=== PATIENT | female | born 1990 | race Caucasian/White ===

== ENCOUNTER 2016-07-28 12:25 | Inpatient (IN) | payer MEDICAID ==
[2016-07-28] MEDS: Lactated Ringers 1,000 ML IV SCH ×3 (12:54→22:13)
[2016-07-28] MEDS ORDERED: Lidocaine 1% 30 ML SDV INJECT PRN (13:20)
[2016-07-28] MEDS ORDERED: Sodium Chloride 0.9% 10 ML Syringe FLUSH PRN (13:20)
[2016-07-28] MEDS ORDERED: Ondansetron 4 MG/2 ML SDV IV PRN (13:20)
[2016-07-28] MEDS ORDERED: Acetaminophen 325 MG Tab PO PRN (13:20)
[2016-07-28] MEDS ORDERED: Methylergonovine 0.2 MG/1 ML Amp IM PRN (13:20)
[2016-07-28] MEDS ORDERED: Carboprost Tromethamine 250 MCG/1 ML Amp IM PRN (13:20)
[2016-07-28] MEDS ORDERED: Lactated Ringers 500 ML IV ONE (13:20)
[2016-07-28] MEDS ORDERED: Misoprostol 400 MCG (4 X 100 MCG TAB) RECTAL PRN (13:20)
[2016-07-28] MEDS ORDERED: fentaNYL 100 MCG/2 ML SDV IVPUSH PRN (13:20)
[2016-07-28] MEDS ORDERED: Oxytocin/Normal Saline 30 UNIT/500 ML BAG IV SCH (13:30)
[2016-07-28] MEDS ORDERED: Penicillin G Potassium 5 MILLUNITS in Sodium Chloride 0.9% 100 ML IV ONE (13:30)
--- NOTE | 2016-07-28 13:31 | PCM.LDHP ---
L&D History of Present Illness - General Date of Service: 07/28/16 Admit Problem/Dx: Patient Status Order with Admit Dx/Problem 07/28/16 13:20 Patient Status [ADT] Routine Patient Status: Admit to Inpatient Admission Diagnosis/Problem: care Reason for Admit: Spontaneous rupture of membranes Nurse Unit Type: Labor and Delivery Admitting Physician: Chantal Davis Attending Physician: Chantal Davis Admission Diagnosis/Problem Admission Diagnosis/Problem care - History of Present Illness Introduction:: 26-year-old at 37w6d presents with ruptured membranes around 0730 this morning. She states she had a small leak that has continued to increase as the day has progressed. She presented to the OB floor with obvious leaking of fluid. NO vaginal bleeding or leaking of fluid. Baby has been active. She is not feeling any contractions. 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: Musculoskeletal History: Reports: None Neurological History: Reports: None Psychiatric History: Reports: None Endocrine/Metabolic History: Reports: Diabetes, gestational Hematologic History: Reports: Other (see below) Other Hematologic History: hx anemia prior Immunologic History: Reports: None Oncologic (Cancer) History: Reports: None Dermatologic History: Reports: None - Infectious Disease History Infectious Disease History: Reports: None - Past Surgical History Head Surgeries/Procedures: Reports: None Social & Family History - Family History Family Medical History: Noncontributory H&P Review of Systems - Review of Systems: Review Of Systems: See Below General: Reports: no symptoms HEENT: Reports: no symptoms Pulmonary: Reports: no symptoms Cardiovascular: Reports: no symptoms Gastrointestinal: Reports: No symptoms Genitourinary: Reports: no symptoms Musculoskeletal: Reports: no symptoms Skin: Reports: no symptoms L&D Exam - Exam Exam: See Below - Vital Signs Vital Signs: Last Vital Signs Temp 37.6 C 07/28/16 12:43 Pulse 101 H 07/28/16 12:54 Resp 16 07/28/16 12:54 BP 135/85 07/28/16 12:54 Pulse Ox 98 07/28/16 12:43 - OB Specific Contraction Duration (sec): 45 Contraction Frequency (min): 1.5 Contraction Intensity: Mild movement: active heart tones: present heart tones per min: 145 Heart Rate (FHR) Variability: Moderate (6-25 bmp) Presentation: Vertex - Taylor Score Taylor Score Cervix Position: Posterior Taylor Score Consistency: Soft Taylor Score Effacement: 31-50% Taylor Score Dilation: 1-2 cm Taylor Score 's Station: -3 Taylor Score Total: 4 - Exam General: alert, oriented HEENT: Mucosa moist & pink, Posterior pharynx clear Lungs: Clear to auscultation, Normal respiratory effort Cardiovascular: regular rate, regular rhythm. No: systolic murmur, diastolic murmur Genitourinary: Normal external exam Skin: warm, dry, intact - Problem List (1) care in third trimester SNOMED Code(s): 176585109, 38753213, 01800013, 552991341, 113575043 ICD Code: Z34.93 - ENCNTR FOR SUPRVSN OF NORMAL PREG, UNSP, THIRD TRIMESTER Status: Acute Current Visit: Yes (2) PROM (premature rupture of membranes) SNOMED Code(s): 29626201 ICD Code: O42.90 - DAVEY ROM, 7TH0 BETW RUPT & ONST LABR, UNSP WEEKS OF GEST Status: Acute Current Visit: Yes (3) GBS (group B Streptococcus carrier), +RV culture, currently SNOMED Code(s): 90779563, 592349284 ICD Code: O99.820 - STREPTOCOCCUS B CARRIER STATE COMPLICATING Status: Acute Current Visit: Yes (4) Rubella non-immune status, antepartum SNOMED Code(s): 848268985 ICD Code: O99.89 - OTH DISEASES AND CONDITIONS COMPL PREG/CHLDBRTH; Z28.3 - UNDERIMMUNIZATION STATUS Status: Acute Current Visit: Yes (5) Gestational diabetes mellitus SNOMED Code(s): 10507348 ICD Code: O24.419 - GESTATIONAL DIABETES MELLITUS IN , UNSP CONTROL Status: Acute Current Visit: Yes (6) In utero drug exposure SNOMED Code(s): 570325935 ICD Code: P04.9 - AFFECTED BY MATERNAL NOXIOUS SUBSTANCE, UNSPECIFIED Status: Acute Current Visit: Yes Problem List Initiated/Reviewed/Updated: Yes Orders Last 24hrs: Active Orders 24 hr Category Date Time Status Patient Status [ADT] Routine ADT 07/28/16 13:20 Ordered Communication Order [RC] ASDIRECTED Care 07/28/16 13:20 Ordered Notify Provider Vital Signs OB [RC] ASDIRECTED Care 07/28/16 13:20 Ordered Notify Provider [RC] PRN Care 07/28/16 13:20 Ordered Pump Management, Intrathecal [RC] ASDIRECTED Care 07/28/16 13:20 Ordered Up ad Richa [RC] ASDIRECTED Care 07/28/16 13:20 Ordered Vital Signs [RC] PER UNIT ROUTINE Care 07/28/16 13:20 Ordered Clear Liquid Diet [DIET] Diet 07/28/16 Lunch Ordered CBC W/O DIFF,HEMOGRAM [HEME] Routine Lab 07/28/16 13:20 Ordered DRUG SCREEN,SERUM [CHEM] Routine Lab 07/28/16 13:20 Ordered Acetaminophen [Tylenol] Med 07/28/16 13:20 Ordered 650 mg PO Q4H PRN Carboprost Tromethamine [Hemabate DS] Med 07/28/16 13:20 Ordered 250 mcg IM ASDIRECTED PRN Lactated Ringers @ 125 MLS/HR(1000ml) Med 07/28/16 13:30 Ordered Lactated Ringers [Ringers, Lactated] 1,000 ml IV ASDIRECTED Lactated Ringers [Ringers, Lactated] 500 ml Med 07/28/16 13:20 Ordered IV .BOLUS Lidocaine 1% [Xylocaine-MPF 1%] Med 07/28/16 13:20 Ordered 10 ml INJECT ASDIRECTED PRN Methylergonovine [Methergine] Med 07/28/16 13:20 Ordered 0.2 mg IM ASDIRECTED PRN Misoprostol [Cytotec] Med 07/28/16 13:20 Ordered 800 mcg RECTAL ASDIRECTED PRN Ondansetron [Zofran] Med 07/28/16 13:20 Ordered 4 mg IV Q4H PRN Oxytocin 30 Units in NS @ 2 MUNITS/MIN(500ml) Med 07/28/16 13:30 Ordered Oxytocin/Normal Saline [Pitocin in NS 30 UNIT/500 ML] 30 unit in 500 ml IV TITRATE Penicillin G Potassium [Pfizerpen] 3 millunits Med 07/28/16 14:00 Ordered Sodium Chloride 0.9% [Normal Saline] 100 ml IV Q4HR Penicillin G Potassium [Pfizerpen] 5 millunits Med 07/28/16 13:20 Ordered Sodium Chloride 0.9% [Normal Saline] 100 ml IV ONETIME Sodium Chloride 0.9% [Saline Flush] Med 07/28/16 13:20 Ordered 10 ml FLUSH ASDIRECTED PRN fentaNYL [Sublimaze] Med 07/28/16 13:20 Ordered 100 mcg IVPUSH Q1H PRN Saline Lock Insert [OM.PC] Routine Oth 07/28/16 13:20 Ordered Resuscitation Status Routine Resus Stat 07/28/16 13:20 Ordered Medication Orders Acetaminophen (Tylenol) 650 mg PO Q4H PRN PRN Reason: Pain (Mild 1-3) and fever Carboprost Tromethamine (Hemabate Ds) 250 mcg IM ASDIRECTED PRN PRN Reason: HEMORRHAGE Fentanyl (Sublimaze) 100 mcg IVPUSH Q1H PRN PRN Reason: Pain (moderate 4-6) Lactated Ringer's (Ringers, Lactated) 500 mls @ 999 mls/hr IV .BOLUS ONE Stop: 07/28/16 13:50 Lactated Ringer's (Ringers, Lactated) 1,000 mls @ 125 mls/hr IV ASDIRECTED JOSEF Penicillin G Potassium 5 (millunits/ Sodium Chloride) 100 mls @ 200 mls/hr IV ONETIME ONE Stop: 07/28/16 13:49 Penicillin G Potassium 3 (millunits/ Sodium Chloride) 100 mls @ 200 mls/hr IV Q4HR JOSEF Oxytocin/Sodium Chloride (Pitocin In Ns 30 Unit/500 Ml) 30 unit in 500 mls @ 2 mls/hr IV TITRATE JOSEF; 2 MUNITS/MIN PRN Reason: Protocol Lidocaine HCl (Xylocaine-Mpf 1%) 10 ml INJECT ASDIRECTED PRN PRN Reason: Perineal Repair Methylergonovine Maleate (Methergine) 0.2 mg IM ASDIRECTED PRN PRN Reason: Hemorrhage Misoprostol (Cytotec) 800 mcg RECTAL ASDIRECTED PRN PRN Reason: Hemorrhage Ondansetron HCl (Zofran) 4 mg IV Q4H PRN PRN Reason: Nausea/Vomiting Sodium Chloride (Saline Flush) 10 ml FLUSH ASDIRECTED PRN PRN Reason: Keep Vein Open Assessment/Plan Comment:: 1. Admit to Labor and Delivery 2. Initiate routine intrapartum orders 3. Penicillin for GBS positive status 4. As she has been ruptured for 6 hours, will initiate pitocin for induction of labor 5. Expectant management. Anticipate Chantal Davis MD
[2016-07-28] MEDS: Penicillin G Potassium 3 MILLUNITS in Sodium Chloride 0.9% 100 ML IV SCH ×2 (17:49→21:54)
[2016-07-29] MEDS: Penicillin G Potassium 3 MILLUNITS in Sodium Chloride 0.9% 100 ML IV SCH (01:34)
[2016-07-29] MEDS: Lactated Ringers 1,000 ML IV SCH (01:42)
--- NOTE | 2016-07-29 02:26 | PCM.SN ---
- Free Text/Narrative Note: Intrathecal. Sitting position, sterile prep and drape. 1 % lidocaine w bicarb for skinwheal to L3 L4 interspace, introducer, 24 ga pencan x 1. Pos CSF, neg heme, neg parasthesia. 15 mcg pf sufenta, 30 mcg pf fentanyl, 0.4 ml pf ns and 6 mg of 0.75 % pf bupivacaine injected after CSF aspiration. Pt to L lateral position. Procedure time 0205 to 0230
[2016-07-29] MEDS ORDERED: Simethicone 80 MG Tab.Chew PO PRN (04:38)
[2016-07-29] MEDS ORDERED: Sodium Chloride 0.9% 10 ML Syringe FLUSH PRN (04:38)
[2016-07-29] MEDS ORDERED: Benzocaine/Menthol 20%-0.5% Spray 56 GM Canister TOP PRN (04:38)
[2016-07-29] MEDS ORDERED: Oxytocin 10 Units/1 ML SDV IM PRN (04:38)
[2016-07-29] MEDS ORDERED: Ibuprofen 800 MG Tab PO PRN (04:38)
--- NOTE | 2016-07-29 04:45 | PCM.DEL ---
L & D Note - General Info Date of Service: 07/29/16 Mother's Due Date: 08/12/16 - Delivery Note Labor: spontaneous, augmented by oxytocin Delivery Outcome: Livebirth Infant Delivery Method: Spontaneous Vaginal Delivery Presentation: Left Occiput Anterior (JOSE) Nuchal cord: present, reduced Anesthesia Type: None Amniotic Fluid Description: Clear Episiotomy Type: None Laceration: labial (Not repaired, hemostatic) Cord: 3 vessels Estimated blood loss: 150 Resuscitation needed: Yes [place]: suctioned, bulb syringe, stimulated, warmed, blanket used, warmer used Delivery Comments (Free Text/Narrative):: 26-year-old, now , presented to the OB floor on 07/28/2016 with spontaneous rupture of membranes 6 hours prior to arrival to the floor. Pencillin was started for GBS positive status. Pitocin was also started to Augment labor. Patient progress to 7 cm dilation without pain medication; however, over the next 2 hours, her cervix started to swell due to involuntary pushing. Patient received an intrathecal and was able to rest comfortably. She progressed to complete dilation and +2 station. Patient pushed for 10-15 minutes and delivered a viable female infant. Nuchal was noted upon delivery of the head and baby was delivered through it. Cord was clamped x2 and cut in the standard fashion. Baby was taken to the warmer. Cord blood was collected. A short time later, the placenta delivered spontaneously and appeared to be intact. Left labial laceration was noted but was hemostatic so was not repaired. Bleeding was appropriate. There were no complications. - General Info Date of Service: 07/29/16 - Patient Data Vitals - most recent: Last Vital Signs Temp 37.4 C 07/28/16 23:47 Pulse 135 H 07/29/16 04:00 Resp 16 07/29/16 04:00 BP 109/62 07/29/16 04:00 Pulse Ox 100 07/29/16 04:00 Weight - most recent: 56.699 kg I&O - last 24 hours: Intake & Output 07/28/16 07/28/16 07/29/16 14:59 22:59 06:59 Intake Total 100 2620 1100 Output Total 200 300 Balance -100 2320 1100 Lab Results last 24 hrs: Laboratory Results - last 24 hr 07/28/16 07/28/16 Range/Units 12:00 12:00 WBC 12.3 H (5.0-10.0) 10^3/uL RBC 3.59 L (4.2-5.4) 10^6/uL Hgb 12.1 (12.0-16.0) g/dL Hct 35.8 L (37.0-47.0) % MCV 99.7 (80-100) fL MCH 33.7 (27.0-34.0) pg MCHC 33.8 (33.0-35.0) g/dL Plt Count 154 (150-450) 10^3/uL Urine Opiates Screen Negative (NEGATIVE) Ur Oxycodone Screen Negative (NEGATIVE) Urine Methadone Screen Negative (NEGATIVE) Ur Barbiturates Screen Negative (NEGATIVE) U Tricyclic Antidepress Negative (NEGATIVE) Ur Phencyclidine Scrn Negative (NEGATIVE) Ur Amphetamine Screen Negative (NEGATIVE) U Methamphetamines Scrn Negative (NEGATIVE) Urine MDMA Screen Negative (NEGATIVE) U Benzodiazepines Scrn Negative (NEGATIVE) Urine Cocaine Screen Negative (NEGATIVE) U Marijuana (THC) Screen Negative (NEGATIVE) Med Orders - Current: Current Medications Acetaminophen (Tylenol) 650 mg PO Q4H PRN PRN Reason: Pain (Mild 1-3) and fever Carboprost Tromethamine (Hemabate Ds) 250 mcg IM ASDIRECTED PRN PRN Reason: HEMORRHAGE Oxytocin/Sodium Chloride (Pitocin In Ns 30 Unit/500 Ml) 30 unit in 500 mls @ 2 mls/hr IV TITRATE JOSEF; 2 MUNITS/MIN PRN Reason: Protocol Last Titration: 07/28/16 21:53 Dose: 14 munits/min, 14 mls/hr Methylergonovine Maleate (Methergine) 0.2 mg IM ASDIRECTED PRN PRN Reason: Hemorrhage Misoprostol (Cytotec) 800 mcg RECTAL ASDIRECTED PRN PRN Reason: Hemorrhage Ondansetron HCl (Zofran) 4 mg IV Q4H PRN PRN Reason: Nausea/Vomiting Last Admin: 07/29/16 01:54 Dose: 4 mg Sodium Chloride (Saline Flush) 10 ml FLUSH ASDIRECTED PRN PRN Reason: Keep Vein Open Discontinued Medications Fentanyl (Sublimaze) 100 mcg IVPUSH Q1H PRN PRN Reason: Pain (moderate 4-6) Lactated Ringer's (Ringers, Lactated) 500 mls @ 999 mls/hr IV .BOLUS ONE Stop: 07/28/16 13:50 Last Admin: 07/29/16 02:38 Dose: 999 mls/hr Lactated Ringer's (Ringers, Lactated) 1,000 mls @ 125 mls/hr IV ASDIRECTED JOSEF Last Admin: 07/29/16 01:42 Dose: 125 mls/hr Penicillin G Potassium 5 (millunits/ Sodium Chloride) 100 mls @ 200 mls/hr IV ONETIME ONE Stop: 07/28/16 13:59 Last Admin: 07/28/16 13:48 Dose: 200 mls/hr Penicillin G Potassium 3 (millunits/ Sodium Chloride) 100 mls @ 200 mls/hr IV Q4HR [facility] Last Admin: 07/29/16 01:34 Dose: 200 mls/hr Lidocaine HCl (Xylocaine-Mpf 1%) 10 ml INJECT ASDIRECTED PRN PRN Reason: Perineal Repair - Problem List & Annotations (1) care in third trimester SNOMED Code(s): 661650913, 29103964, 43124747, 329526319, 732302423 Code(s): Z34.93 - ENCNTR FOR SUPRVSN OF NORMAL PREG, UNSP, THIRD TRIMESTER Status: Acute Current Visit: Yes (2) PROM (premature rupture of membranes) SNOMED Code(s): 67235676 Code(s): O42.90 - DAVEY ROM, 7TH0 BETW RUPT & ONST LABR, UNSP WEEKS OF GEST Status: Acute Current Visit: Yes (3) GBS (group B Streptococcus carrier), +RV culture, currently SNOMED Code(s): 16856839, 740973196 Code(s): O99.820 - STREPTOCOCCUS B CARRIER STATE COMPLICATING Status: Acute Current Visit: Yes (4) Rubella non-immune status, antepartum SNOMED Code(s): 738537693 Code(s): O99.89 - OTH DISEASES AND CONDITIONS COMPL PREG/CHLDBRTH; Z28.3 - UNDERIMMUNIZATION STATUS Status: Acute Current Visit: Yes (5) Gestational diabetes mellitus SNOMED Code(s): 44289713 Code(s): O24.419 - GESTATIONAL DIABETES MELLITUS IN , UNSP CONTROL Status: Acute Current Visit: Yes (6) In utero drug exposure SNOMED Code(s): 482202518 Code(s): P04.9 - AFFECTED BY MATERNAL NOXIOUS SUBSTANCE, UNSPECIFIED Status: Acute Current Visit: Yes (7) (normal spontaneous vaginal delivery) SNOMED Code(s): 17758849 Code(s): O80 - ENCOUNTER FOR FULL-TERM UNCOMPLICATED DELIVERY Status: Acute Current Visit: Yes - Problem List Review Problem List Initiated/Reviewed/Updated: Yes - My Orders Last 24 Hours: My Active Orders 07/28/16 13:20 Patient Status [ADT] Routine Up ad Richa [RC] ASDIRECTED CBC W/O DIFF,HEMOGRAM [HEME] Routine DRUG SCREEN,SERUM [CHEM] Routine Acetaminophen [Tylenol] 650 mg PO Q4H PRN Carboprost Tromethamine [Hemabate DS] 250 mcg IM ASDIRECTED PRN Methylergonovine [Methergine] 0.2 mg IM ASDIRECTED PRN Misoprostol [Cytotec] 800 mcg RECTAL ASDIRECTED PRN Ondansetron [Zofran] 4 mg IV Q4H PRN Sodium Chloride 0.9% [Saline Flush] 10 ml FLUSH ASDIRECTED PRN Saline Lock Insert [OM.PC] Routine Resuscitation Status Routine 07/28/16 13:30 Oxytocin/Normal Saline [Pitocin in NS 30 UNIT/500 ML] 30 unit in 500 ml IV TITRATE 07/29/16 04:38 Notify Provider Vital Signs OB [RC] ASDIRECTED Up ad Richa [RC] ASDIRECTED Vital Signs [RC] PFP Consult to Arc Cutter [CONS] Routine Benzocaine/Menthol [Dermoplast Pain Relief [place]] See Dose Instructions TOP Q4H PRN Docusate Sodium [Colace] 100 mg PO BID PRN Ibuprofen [Motrin] 800 mg PO Q8H PRN Oxytocin [Pitocin] 10 unit IM ONETIME PRN Simethicone 80 mg PO Q4H PRN Sodium Chloride 0.9% [Saline Flush] 10 ml FLUSH ASDIRECTED PRN Assess Lochia [WOMSER] Per Unit Routine Assess Uterine Involution [WOMSER] Per Unit Routine Breast Pump [WOMSER] Per Unit Routine Ice Therapy [OM.PC] Per Unit Routine Perineal Care [OM.PC] Per Unit Routine Saline Lock Insert [OM.PC] Urgent Sitz Bath [OM.PC] Per Unit Routine 07/29/16 09:00 Vit with Ca/FA/Iron [ Plus Iron] 1 each PO DAILY - Assessment Assessment:: 26-year-old, now , status post normal spontaneous vaginal delivery - Plan Plan:: 1. Initiate routine orders 2. Plans to breastfeed-- consult placed 3. Anticipate discharge 07/31/16 Chantal Davis MD
[2016-07-29] MEDS: Prenatal Multivitamin with Calcium/Folic Acid/Iron Tab PO SCH (08:15)
[2016-07-29] MEDS: Docusate Sodium 100 MG Cap PO PRN (08:15)
[2016-07-29] MEDS ORDERED: fentaNYL 100 MCG/2 ML SDV IV ONE (12:39)
[2016-07-29] MEDS ORDERED: Measles, Mumps & Rubella Vaccine 0.5 ML SDV SUBCUT ONE (13:32)
[2016-07-30 08:27] VITALS: BP 126/73
[2016-07-30] MEDS: Prenatal Multivitamin with Calcium/Folic Acid/Iron Tab PO SCH (09:04)
[2016-07-30] MEDS: Docusate Sodium 100 MG Cap PO PRN (09:04)
--- NOTE | 2016-07-30 12:15 | PCM.DCSUM1 ---
Discharge Summary - Hospital Course Free Text/Narrative:: Patient presented to the OB floor with PROM on 07/28/16. Penicillin was started for GBS positive status, and pitocin was given for labor induction/ augmentation. Patient received at intrathecal for pain control. She delivered a viable female via on 07/29/16. Baby had Apgars on 5 and 9 at 1 and 5 minutes respectively. No laceration repair was needed. Placenta delivered spontaneously and intact. Bleeding was appropriate - Discharge Data Discharge Date: 07/30/16 Discharge Disposition: Home, Self-Care 01 Condition: Good - Discharge Diagnosis/Problem(s) (1) care in third trimester SNOMED Code(s): 489536258, 06638478, 11173893, 830797087, 442655281 ICD Code: Z34.93 - ENCNTR FOR SUPRVSN OF NORMAL PREG, UNSP, THIRD TRIMESTER Status: Acute (2) PROM (premature rupture of membranes) SNOMED Code(s): 15835868 ICD Code: O42.90 - DAVEY ROM, 7TH0 BETW RUPT & ONST LABR, UNSP WEEKS OF GEST Status: Acute (3) GBS (group B Streptococcus carrier), +RV culture, currently SNOMED Code(s): 32569689, 283137727 ICD Code: O99.820 - STREPTOCOCCUS B CARRIER STATE COMPLICATING Status: Acute (4) Rubella non-immune status, antepartum SNOMED Code(s): 426889146 ICD Code: O99.89 - OTH DISEASES AND CONDITIONS COMPL PREG/CHLDBRTH; Z28.3 - UNDERIMMUNIZATION STATUS Status: Acute (5) Gestational diabetes mellitus SNOMED Code(s): 37934163 ICD Code: O24.419 - GESTATIONAL DIABETES MELLITUS IN , UNSP CONTROL Status: Acute (6) In utero drug exposure SNOMED Code(s): 701530525 ICD Code: P04.9 - AFFECTED BY MATERNAL NOXIOUS SUBSTANCE, UNSPECIFIED Status: Acute (7) (normal spontaneous vaginal delivery) SNOMED Code(s): 59044474 ICD Code: O80 - ENCOUNTER FOR FULL-TERM UNCOMPLICATED DELIVERY Status: Acute - Patient Summary/Data Operative Procedure(s) Performed: None Complications: None Consults: Consultations 07/29/16 04:38 Consult to Supervisor Pumping [CONS] Routine Recommended Follow-up Testing/Procedures: None Planned Operative Procedure(s) after DC: None Hospital Course: Unremarkable course (see Subjective below) - Patient Instructions Diet: Usual Diet as Tolerated Activity: As Tolerated, No Lifting Over 20 Pounds Driving: May Drive Today Showering/Bathing: May Shower Notify Provider of: Fever, Increased Pain, Swelling and Redness, Drainage, Nausea and/or Vomiting - Discharge Plan Home Medications: Home Meds Vit with Ca/FA/Iron [ Plus Iron] 1 tab PO DAILY 07/28/16 [ History] Acetaminophen [Tylenol] 650 mg PO Q4H PRN #0 tablet 07/30/16 [Rx] Ibuprofen [IJD: Ibuprofen] 800 mg PO Q8H PRN #0 tablet 07/30/16 [Rx] Patient Handouts: Vaginal Delivery, Home Care Instructions for Mom Referrals: Samara Rodas MD [Physician] - (Please schedule own 6 week appointment. ) - Discharge Summary/Plan Comment DC Time >30 min.: No Discharge Summary/Plan Comment: Discharge home today. Continue Tylenol and/or ibuprofen for pain. Follow-up with Dr. Davis or Dr. Casarez in 6 weeks for visit. Follow-up sooner if needed. Chantal Davis MD - General Info Date of Service: 07/30/16 Admission Dx/Problem (Free Text: Patient Status Order with Admit Dx/Problem 07/28/16 13:20 Patient Status [ADT] Routine Patient Status: Admit to Inpatient Admission Diagnosis/Problem: care Reason for Admit: Spontaneous rupture of membranes Nurse Unit Type: Labor and Delivery Admitting Physician: Chantal Davis Attending Physician: Chantal Davis Admission Diagnosis/Problem Admission Diagnosis/Problem care Subjective Update: 26-year-old now PPD #1 after . Patient is doing well. She has no complaints. Tolerating a general diet. Ambulating without difficulty. Urinating and passing gas. No fevers, chills, dizziness or lightheadedness. Desires discharge home today. Functional Status: Reports: pain controlled, tolerating diet, ambulating, urinating. Denies: new symptoms - Review of Systems General: Reports: no symptoms HEENT: Reports: no symptoms Pulmonary: Reports: no symptoms Cardiovascular: Reports: no symptoms Gastrointestinal: Reports: No symptoms Genitourinary: Reports: no symptoms Musculoskeletal: Reports: no symptoms Neurological: Reports: no symptoms - Patient Data Vitals - Most Recent: Last Vital Signs Temp 36.3 C 07/30/16 08:00 Pulse 78 07/30/16 08:00 Resp 16 07/30/16 08:00 BP 126/73 07/30/16 08:00 Pulse Ox 98 07/30/16 08:00 Weight - Most Recent: 56.699 kg I&O - Last 24 hours: Intake & Output 07/29/16 07/30/16 07/30/16 22:59 06:59 14:59 Intake Total 1 Balance 1 Lab Results - Last 24 hrs: Laboratory Results - last 24 hr 07/29/16 07/29/16 Range/Units 13:20 13:50 Maternal Bleed Neg Blood Type A NEGATIVE Gel Antibody Screen Positive Antibody Identification Anti-D Rhogam Indicated Yes, baby rh pos H Med Orders - Current: Current Medications Acetaminophen (Tylenol) 650 mg PO Q4H PRN PRN Reason: Pain (Mild 1-3) and fever Benzocaine/Menthol (Dermoplast Pain Relief [place]) 0 gm TOP Q4H PRN PRN Reason: Perineal comfort measures Carboprost Tromethamine (Hemabate Ds) 250 mcg IM ASDIRECTED PRN PRN Reason: HEMORRHAGE Docusate Sodium (Colace) 100 mg PO BID PRN PRN Reason: Constipation Last Admin: 07/30/16 09:04 Dose: 100 mg Oxytocin/Sodium Chloride (Pitocin In Ns 30 Unit/500 Ml) 30 unit in 500 mls @ 2 mls/hr IV TITRATE JOSEF; 2 MUNITS/MIN PRN Reason: Protocol Last Titration: 07/29/16 06:09 Dose: Infused Ibuprofen (Motrin) 800 mg PO Q8H PRN PRN Reason: Mild Pain or Fever Methylergonovine Maleate (Methergine) 0.2 mg IM ASDIRECTED PRN PRN Reason: Hemorrhage Misoprostol (Cytotec) 800 mcg RECTAL ASDIRECTED PRN PRN Reason: Hemorrhage Ondansetron HCl (Zofran) 4 mg IV Q4H PRN PRN Reason: Nausea/Vomiting Last Admin: 07/29/16 01:54 Dose: 4 mg Oxytocin (Pitocin) 10 unit IM ONETIME PRN PRN Reason: Bleeding Prenat Multivit/[place]/Iron/Folic Ac ( Plus Iron) 1 each PO DAILY [facility] Last Admin: 07/30/16 09:04 Dose: 1 each Simethicone (Simethicone) 80 mg PO Q4H PRN PRN Reason: Gas Sodium Chloride (Saline Flush) 10 ml FLUSH ASDIRECTED PRN PRN Reason: Keep Vein Open Sodium Chloride (Saline Flush) 10 ml FLUSH ASDIRECTED PRN PRN Reason: Keep Vein Open Discontinued Medications Fentanyl (Sublimaze) 100 mcg IVPUSH Q1H PRN PRN Reason: Pain (moderate 4-6) Lactated Ringer's (Ringers, Lactated) 500 mls @ 999 mls/hr IV .BOLUS ONE Stop: 07/28/16 13:50 Last Admin: 07/29/16 02:38 Dose: 999 mls/hr Lactated Ringer's (Ringers, Lactated) 1,000 mls @ 125 mls/hr IV ASDIRECTED [facility] Last Admin: 07/29/16 01:42 Dose: 125 mls/hr Penicillin G Potassium 5 (millunits/ Sodium Chloride) 100 mls @ 200 mls/hr IV ONETIME ONE Stop: 07/28/16 13:59 Last Admin: 07/28/16 13:48 Dose: 200 mls/hr Penicillin G Potassium 3 (millunits/ Sodium Chloride) 100 mls @ 200 mls/hr IV Q4HR [facility] Last Admin: 07/29/16 01:34 Dose: 200 mls/hr Lidocaine HCl (Xylocaine-Mpf 1%) 10 ml INJECT ASDIRECTED PRN PRN Reason: Perineal Repair Measles/Mumps/Rubella Vaccine Live (M-M-R Ii Vaccine) 0.5 ml SUBCUT .ONCE ONE Stop: 07/29/16 13:33 Last Admin: 07/29/16 15:22 Dose: 0.5 ml - Exam General: Reports: alert, oriented HEENT: Reports: Mucous membr. moist/pink Lungs: Reports: Clear to auscultation, Normal respiratory effort Cardiovascular: Reports: regular rate, regular rhythm. Denies: murmurs Extremities: Reports: edema (Trace to lower extremities bilaterally) *Q Meaningful Use (DIS) - VTE *Q VTE Criteria *Q: - Stroke *Q Stroke Criteria *Q: - AMI *Q AMI Criteria *Q:
== END 2016-07-30 12:40 | disposition home or self-care (01) | DRG 775 ==
LOC: DL.OBCHECK 12:25 → DL.OB 12:33 → OBSVTOIN 07-29 04:18
PROVIDERS: ADMIT Family Medicine; ATTEND Family Medicine
PROC: 10E0XZZ Delivery of Products of Conception, External Approach (ICD-10-PCS; principal; 2016-07-29)
DX: O42.92 Full-term premature rupture of membranes, unspecified as to length of time between rupture and onset of labor (principal); O99.820 Streptococcus B carrier state complicating pregnancy; O99.89 Other specified diseases and conditions complicating pregnancy, childbirth and the puerperium; O69.81X0 Labor and delivery complicated by cord around neck, without compression, not applicable or unspecified; O24.419 Gestational diabetes mellitus in pregnancy, unspecified control; Z3A.38 38 weeks gestation of pregnancy; Z37.0 Single live birth
CPT/HCPCS: 01967; 36415; 51701; 80305; 83986; 85027; 85461; 86850; 86900; 86901; 90707; A9270-GY; J2405; J2540; J2590; J2790; J3010; J7050; J7120